=== PATIENT | female | born 1950 ===

== ENCOUNTER 2021-06-27 11:07 | Day surgery (SDC) | payer MEDICARE, OTHER ==
[~2021-06-27] VITALS: Ht 162.6 cm; Wt 72.6 kg
[2021-06-27] MEDS ORDERED: ELDERTONIC LIQ473 ML (11:28)
[2021-06-27] MEDS ORDERED: ATOR10 (11:28)
[2021-06-27] MEDS ORDERED: Preservision S1 EACH (11:28)
== END 2021-06-27 13:40 | disposition home or self-care (01) ==
LOC: ORSCSDS 11:07
PROVIDERS: Internal Medicine Gastroenterology
PROC: 0DBL8ZX Excision of Transverse Colon, Via Natural or Artificial Opening Endoscopic, Diagnostic (ICD-10-PCS; principal; 2021-06-27 13:30)
PROC: 0DBH8ZX Excision of Cecum, Via Natural or Artificial Opening Endoscopic, Diagnostic (ICD-10-PCS; principal; 2021-06-27 13:30)
DX: Z12.11 Encounter for screening for malignant neoplasm of colon (principal); Z86.010 Personal history of colon polyps; D12.0 Benign neoplasm of cecum; D12.3 Benign neoplasm of transverse colon; Z79.899 Other long term (current) drug therapy
CPT/HCPCS: 88305; J2704; J7120

== ENCOUNTER 2023-07-25 07:26 | Day surgery (SDC) | payer MEDICARE, OTHER ==
[~2023-07-25] VITALS: Ht 162.6 cm; Wt 62.4 kg
[~2023-07-25 07:26] MED LIST: ATOR10; ELDERTONIC LIQ473 ML; Preservision S1 EACH
[2023-07-25] MEDS ORDERED: Lactated Ringer's 1,000 ML IV ONE ×2 (07:34→08:05)
[2023-07-25] MEDS ORDERED: propofoL 50 ML IV ONE (07:34)
[2023-07-25] MEDS ORDERED: LISI10 (07:43)
[2023-07-25] MEDS ORDERED: Ondansetron HCl 2 MG / ML 2ML Vial ONE (09:25)
[2023-07-25] MEDS ORDERED: ePHEDrine Sulfate 50 MG/ML 1ML Injection ONE (09:25)
[2023-07-25 10:04] VITALS: BP 123/58
== END 2023-07-25 10:03 | disposition home or self-care (01) ==
LOC: ORSCSDS 07:26
PROVIDERS: Internal Medicine Gastroenterology
PROC: 0DBL8ZX Excision of Transverse Colon, Via Natural or Artificial Opening Endoscopic, Diagnostic (ICD-10-PCS; principal; 2023-07-25 08:45)
PROC: 0DBK8ZX Excision of Ascending Colon, Via Natural or Artificial Opening Endoscopic, Diagnostic (ICD-10-PCS; principal; 2023-07-25 08:45)
DX: Z12.11 Encounter for screening for malignant neoplasm of colon (principal); Z86.010 Personal history of colon polyps; D12.3 Benign neoplasm of transverse colon; K63.5 Polyp of colon; K57.30 Diverticulosis of large intestine without perforation or abscess without bleeding; K62.89 Other specified diseases of anus and rectum; Z79.899 Other long term (current) drug therapy
CPT/HCPCS: J2405; J2704; J7120

== ENCOUNTER → 2024-03-25 | Outpatient (CLI) | payer MEDICARE, OTHER ==
[~2024-03-25] MED LIST changes: +LISI10
== END ==
LOC: LAB 14:42 → LAB SHORT 14:42
DX: R30.0 Dysuria (principal)
CPT/HCPCS: 87077; 87086; 87186